=== PATIENT | female | born 1985 | race African-American/Black ===

== ENCOUNTER 2016-09-04 21:49 | Emergency (ER) | payer MEDICAID ==
[2014-03-10 05:26] VITALS: BMI 29.4
[~2016-09-04 21:49] MED LIST: IBUPROFEN800 MG PO; PERCOCET 10/3251 TA1 PO; PRENAVITE1 TAB PO
[2016-09-04 22:24] LABS: BASOPHILS 0.1 % (0-2); EOSINOPHILS 2.2 % (0-7); HEMATOCRIT 30.6 % (36.0-48.0); HEMOGLOBIN 10.7 g/dL (12-16); IMMATURE GRANULOCYTES 0.1 % (0-5); LYMPHOCYTES 29.6 % (15-50); MCH 32.7 pg (26.0-34.0); MCV 93.6 fL (80.0-100.0); MEAN PLATELET VOLUME 8.6 fL (7.4-10.4); MONOCYTES 5.6 % (2-11); NEUTROPHILS 62.4 % (40-80); RBC 3.27 10x6/uL (4.00-5.40); RDW 12.9 % (11.5-14.5); WBC 6.8 10x3/uL (4.8-10.8)
[2016-09-04 22:29] LABS: PLATELET COUNT 299 10x3/uL (130-400)
[2016-09-04 22:40] LABS: ALBUMIN 2.8 g/dL (3.4-5.0); ALKALINE PHOSPHATASE 60 U/L (46-116); ALT (SGPT) 25 U/L (10-68); BILIRUBIN - TOTAL 0.18 mg/dL (0.2-1.3); CALC OSMOLALITY 276 mosm/kg (275-300); CALCIUM 8.6 mg/dL (8.5-10.1); CARBON DIOXIDE 27.1 mmol/L (21.0-32.0); CHLORIDE - SERUM 102 mmol/L (98-107); CREATININE - SERUM 0.6 mg/dL (0.6-1.3); GLUCOSE 128 mg/dL (74-106); POTASSIUM - SERUM 3.5 mmol/L (3.5-5.1); PROTEIN - SERUM 6.6 g/dL (6.4-8.2); SODIUM 138 mmol/L (136-145); UREA NITROGEN 9 mg/dL (7-18); eGFR NON AFRICAN AMERICAN > 90 mL/min (90-120)
[2016-09-04 22:57] LABS: APPEARANCE CLEAR (CLEAR); COLOR AMBER (YELLOW); GLUCOSE NEGATIVE (NEGATIVE); KETONE NEGATIVE (NEGATIVE); LEUKOCYTE ESTERASE NEGATIVE (NEGATIVE); NITRITE NEGATIVE (NEGATIVE); PROTEIN NEGATIVE (NEGATIVE); SPECIFIC GRAVITY 1.015 (1.005-1.020); UROBILINOGEN NORMAL (NORMAL)
[2016-09-04 22:58] LABS: BILIRUBIN NEGATIVE (NEGATIVE)
[2016-09-04 23:04] LABS: UDS - AMPHET POSITIVE QUAL (NEGATIVE); UDS - BARB NEGATIVE QUAL (NEGATIVE); UDS - BENZO POSITIVE QUAL (NEGATIVE); UDS - COCAINE POSITIVE QUAL (NEGATIVE); UDS - METH NEGATIVE QUAL (NEGATIVE); UDS - OPIATE NEGATIVE QUAL (NEGATIVE); UDS - PCP NEGATIVE QUAL (NEGATIVE); UDS - THC NEGATIVE QUAL (NEGATIVE)
== END 2016-09-05 00:45 | disposition home or self-care (01) ==
LOC: D.ER 21:49
PROVIDERS: Family Medicine
DX: O26.892 Other specified pregnancy related conditions, second trimester (principal); R22.43 Localized swelling, mass and lump, lower limb, bilateral; M54.16 Radiculopathy, lumbar region; F17.200 Nicotine dependence, unspecified, uncomplicated

== ENCOUNTER → 2016-10-12 15:00 | Outpatient (CLI) | payer MEDICAID ==
[2014-03-10 05:26] VITALS: BMI 29.4
== END | disposition home or self-care (01) ==
LOC: D.LDO 15:00
DX: O26.893 Other specified pregnancy related conditions, third trimester (principal); Z3A.33 33 weeks gestation of pregnancy

== ENCOUNTER 2016-10-23 12:30 | Inpatient (IN) | payer MEDICAID ==
[~2016-10-23] VITALS: Ht 167.6 cm; Wt 93.9 kg
[2016-10-23 13:25] LABS: UDS - AMPHET NEGATIVE QUAL (NEGATIVE); UDS - BARB NEGATIVE QUAL (NEGATIVE); UDS - BENZO NEGATIVE QUAL (NEGATIVE); UDS - COCAINE NEGATIVE QUAL (NEGATIVE); UDS - METH NEGATIVE QUAL (NEGATIVE); UDS - OPIATE NEGATIVE QUAL (NEGATIVE); UDS - PCP NEGATIVE QUAL (NEGATIVE); UDS - THC NEGATIVE QUAL (NEGATIVE)
[2016-10-23 13:33] LABS: COLOR DK YELLOW (YELLOW)
[2016-10-23 13:34] LABS: APPEARANCE CLOUDY (CLEAR); BILIRUBIN NEGATIVE (NEGATIVE); GLUCOSE NEGATIVE (NEGATIVE); KETONE NEGATIVE (NEGATIVE); LEUKOCYTE ESTERASE 2+ (NEGATIVE); NITRITE NEGATIVE (NEGATIVE); PROTEIN TRACE mg/dL (NEGATIVE); UROBILINOGEN NORMAL (NORMAL)
[2016-10-23 13:37] LABS: BACTERIA MODERATE /hpf (NONE SEEN); MUCUS <1+ /lpf (NONE SEEN); RED CELLS - URINE 0-5 /hpf (0-5); WHITE CELLS - URINE >50 /hpf (0-5)
[2016-10-23 16:48] LABS: HEMATOCRIT 33.6 % (36.0-48.0); HEMOGLOBIN 11.5 g/dL (12-16); MCH 33.1 pg (26.0-34.0); MCHC 34.2 g/dL (31.0-37.0); MCV 96.8 fL (80.0-100.0); MEAN PLATELET VOLUME 9.1 fL (7.4-10.4); RBC 3.47 10x6/uL (4.00-5.40)
[2016-10-23] MEDS ORDERED: PHENERGAN25 M1 (18:04)
[2016-10-23] MEDS ORDERED: ZOFRAN4 MG (18:05)
[2016-10-23] MEDS ORDERED: ACETAMINOPHEN325 MG (18:06)
[2016-10-23 18:37] VITALS: BP 113/59; Ht 167.6 cm; Wt 93.9 kg
[2016-10-25 07:25] LABS: RAPID PLASMA REAGIN Non Reactive (Non Reactive)
== END 2016-10-24 08:30 | disposition home or self-care (01) | DRG 782 ==
LOC: D.LDO 12:30 → D.LD 17:27
PROVIDERS: ADMIT Obstetrics & Gynecology
DX: O99.333 Smoking (tobacco) complicating pregnancy, third trimester (principal); Z3A.00 Weeks of gestation of pregnancy not specified; O34.219 Maternal care for unspecified type scar from previous cesarean delivery

== ENCOUNTER → 2016-11-11 12:47 | Outpatient (CLI) | payer MEDICAID ==
[2016-10-23 18:37] VITALS: BMI 33.4
[~2016-11-11 12:47] MED LIST changes: +ACETAMINOPHEN325 MG; +PHENERGAN25 M1; +ZOFRAN4 MG
[2016-11-11 14:00] LABS: UDS - AMPHET NEGATIVE QUAL (NEGATIVE); UDS - BARB NEGATIVE QUAL (NEGATIVE); UDS - BENZO POSITIVE QUAL (NEGATIVE); UDS - COCAINE NEGATIVE QUAL (NEGATIVE); UDS - METH NEGATIVE QUAL (NEGATIVE); UDS - OPIATE NEGATIVE QUAL (NEGATIVE); UDS - PCP NEGATIVE QUAL (NEGATIVE); UDS - THC NEGATIVE QUAL (NEGATIVE)
[2016-11-11 14:15] LABS: APPEARANCE SLT CLOUDY (CLEAR); BILIRUBIN NEGATIVE (NEGATIVE); COLOR DK YELLOW (YELLOW); GLUCOSE NEGATIVE (NEGATIVE); KETONE NEGATIVE (NEGATIVE); LEUKOCYTE ESTERASE TRACE (NEGATIVE); NITRITE NEGATIVE (NEGATIVE); PROTEIN NEGATIVE (NEGATIVE)
[2016-11-11 14:16] LABS: BACTERIA FEW /hpf (NONE SEEN); EPITHELIAL CELLS 0-5 /hpf (0-5); MUCUS <1+ /lpf (NONE SEEN); RED CELLS - URINE RARE /hpf (0-5); WHITE CELLS - URINE 0-5 /hpf (0-5)
== END | disposition home or self-care (01) ==
LOC: D.LDO 12:47
PROVIDERS: Obstetrics & Gynecology
DX: Z34.83 Encounter for supervision of other normal pregnancy, third trimester (principal); Z3A.37 37 weeks gestation of pregnancy

== ENCOUNTER → 2016-11-17 17:27 | Outpatient (CLI) | payer MEDICAID ==
[2016-10-23 18:37] VITALS: BMI 33.4
[2016-11-17 18:56] LABS: APPEARANCE CLEAR (CLEAR); BILIRUBIN NEGATIVE (NEGATIVE); COLOR YELLOW (YELLOW); GLUCOSE NEGATIVE (NEGATIVE); KETONE NEGATIVE (NEGATIVE); LEUKOCYTE ESTERASE NEGATIVE (NEGATIVE); NITRITE NEGATIVE (NEGATIVE); PROTEIN NEGATIVE (NEGATIVE); SPECIFIC GRAVITY 1.015 (1.005-1.020); UROBILINOGEN NORMAL (NORMAL)
== END | disposition home or self-care (01) ==
LOC: D.LDO 17:27
PROVIDERS: Obstetrics & Gynecology
DX: O36.8130 Decreased fetal movements, third trimester, not applicable or unspecified (principal); M54.5 Low back pain; R51 Headache; Z3A.38 38 weeks gestation of pregnancy

== ENCOUNTER 2016-11-22 10:03 | Inpatient (IN) | payer MEDICAID ==
[~2016-11-22] VITALS: Ht 170.2 cm; Wt 95.3 kg
[2016-11-22] VITALS (7 sets, daily range): BP systolic 90–132; BP diastolic 50–66; Ht 170.2 cm; Wt 95.3 kg
[2016-11-22 11:46] LABS: HEMATOCRIT 33.7 % (36.0-48.0); HEMOGLOBIN 11.9 g/dL (12-16); MCH 33.5 pg (26.0-34.0); MCHC 35.3 g/dL (31.0-37.0); MCV 94.9 fL (80.0-100.0); MEAN PLATELET VOLUME 9.3 fL (7.4-10.4); RBC 3.55 10x6/uL (4.00-5.40); RDW 13.3 % (11.5-14.5); WBC 7.6 10x3/uL (4.8-10.8)
[2016-11-22 12:29] LABS: APPEARANCE HAZY (CLEAR); COLOR YELLOW (YELLOW); SPECIFIC GRAVITY 1.015 (1.005-1.020)
[2016-11-22 12:30] LABS: BACTERIA FEW /hpf (NONE SEEN); BILIRUBIN NEGATIVE (NEGATIVE); GLUCOSE NEGATIVE (NEGATIVE); KETONE NEGATIVE (NEGATIVE); LEUKOCYTE ESTERASE TRACE (NEGATIVE); MUCUS <1+ /lpf (NONE SEEN); NITRITE NEGATIVE (NEGATIVE); PROTEIN NEGATIVE (NEGATIVE); RED CELLS - URINE OCC /hpf (0-5); UROBILINOGEN NORMAL (NORMAL); WHITE CELLS - URINE 0-5 /hpf (0-5)
[2016-11-22 12:35] LABS: UDS - AMPHET NEGATIVE QUAL (NEGATIVE); UDS - BARB POSITIVE QUAL (NEGATIVE); UDS - BENZO POSITIVE QUAL (NEGATIVE); UDS - COCAINE NEGATIVE QUAL (NEGATIVE); UDS - METH NEGATIVE QUAL (NEGATIVE); UDS - OPIATE NEGATIVE QUAL (NEGATIVE); UDS - PCP NEGATIVE QUAL (NEGATIVE); UDS - THC NEGATIVE QUAL (NEGATIVE)
--- NOTE | 2016-11-22 14:53 | NUR ---
BABY BORN AT 1429
--- NOTE | 2016-11-22 15:32 | NUR ---
FUNDUS MIDLINE, 1 FINGER BELOW UMBILLICUS. FIRM. MINIMAL LOCHIA
--- NOTE | 2016-11-22 16:45 | NUR ---
RECEIVED PT BY BED FROM , POST SECTION BY DR. CUELLAR. SEE SHIFT ASSESSMENT. PT PROVIDED WITH I/S, INSTRUCTIONS GIVEN. PT DEMONSTRATES X 3 WELL. FUNDUS FIRM, U/U, SMALL RUBRA LOCHIA, NO CLOTS EXPELLED. PERICARE GIVEN WITH FOAM CLEANSER, PERIPAD CHANGED. ABDOMEN PALPATED SOFT. PT TILTED TO RIGHT WITH PILLOW UNDER NECK AND BACK FOR COMFORT AND SUPPORT. PT DEEP BREATHS AND COUGHS X 2. PT DENIES NAUSEA AND SOB. REQUEST SOMETHING TO DRINK. TEA SERVED. SIDE RAILS UP X 2. CL WITHIN REACH. PHONE WITH IN REACH. FAMILY AT BEDSIDE.
--- NOTE | 2016-11-22 17:00 | NUR ---
FUNDUS FIRM, U/U, SMALL RUBRA LOCHIA, NO CLOTS. PT CONTINUES TO DENY NEEDS AT THIS TIME.
--- NOTE | 2016-11-22 17:15 | NUR ---
FUNDUS FIRM, U/U, SMALL RUBRA LOCHIA, NO CLOTS.
--- NOTE | 2016-11-22 17:45 | NUR ---
FUNDUS FIRM, U/U, SMALL RUBRA LOCHIA, NO CLOTS. CHANGED PERIPAD. PT ABLE TO MOVE BOTH LEGS AND FEET WITH SLIGHT WEAKNESS NOTED. CHUX CHANGED. SR UP X 2, CL/PHONE WITHIN REACH. PT DENIES OTHER NEEDS AT THIS TIME.
--- NOTE | 2016-11-22 18:45 | NUR ---
FUNDUS FIRM, SMALL RUBRA LOCHIA, U/U. PAIN RATED 8/10 ON INSICION. HR CURRENTLY 96, 02 SATURATION AT 100 RA. PT DENIES OTHER NEEDS AT THIS TIME.
--- NOTE | 2016-11-22 18:53 | NUR ---
ABDOMEN SOFT. DRESSING INTACT AND CLEAN.
[2016-11-22 20:17] LABS: BASOPHILS 0.1 % (0-2); EOSINOPHILS 0.5 % (0-7); HEMATOCRIT 30.4 % (36.0-48.0); HEMOGLOBIN 10.7 g/dL (12-16); IMMATURE GRANULOCYTES 0.2 % (0-5); LYMPHOCYTES 14.3 % (15-50); MCH 33.8 pg (26.0-34.0); MCHC 35.2 g/dL (31.0-37.0); MCV 95.9 fL (80.0-100.0); MEAN PLATELET VOLUME 8.8 fL (7.4-10.4); MONOCYTES 2.6 % (2-11); NEUTROPHILS 82.3 % (40-80); RBC 3.17 10x6/uL (4.00-5.40); RDW 13.4 % (11.5-14.5)
[2016-11-22 20:33] LABS: WBC 13.2 10x3/uL (4.8-10.8)
[2016-11-22 20:34] LABS: PLATELET COUNT 272 10x3/uL (130-400)
[2016-11-23] VITALS: BP 105/64
--- NOTE | 2016-11-23 02:00 | NUR ---
PATIENT RESTING IN BED WITH EYES CLOSED AND NO VISIBLE SIGNS OF DISTRESS. BED IN LOWEST POSITION AND CALL LIGHT WITHIN REACH.
[2016-11-23 04:00] VITALS: BP 109/63
[2016-11-23 05:35] LABS: BASOPHILS 0.1 % (0-2); HEMATOCRIT 30.5 % (36.0-48.0); HEMOGLOBIN 10.6 g/dL (12-16); IMMATURE GRANULOCYTES 0.3 % (0-5); LYMPHOCYTES 17.8 % (15-50); MCH 33.3 pg (26.0-34.0); MCHC 34.8 g/dL (31.0-37.0); MCV 95.9 fL (80.0-100.0); MEAN PLATELET VOLUME 9.2 fL (7.4-10.4); MONOCYTES 7.8 % (2-11); PLATELET COUNT 300 10x3/uL (130-400); RBC 3.18 10x6/uL (4.00-5.40); RDW 13.7 % (11.5-14.5)
[2016-11-23 07:26] LABS: RAPID PLASMA REAGIN Non Reactive (Non Reactive)
--- NOTE | 2016-11-23 07:30 | NUR ---
PT AWAKE AND ORIENTED. RESTING ON BED. RATES PAIN 8/10. FUNDUS FIRM, U/1, SMALL RUBRA LOCHIA. ABLE TO MOVE BOTH LEGS. REPOSTIONED TO RIGHT SIDE WITH EXTRA PILLOW PROVIDE UNDER HER BACK. ABDOMEN SOFT. DRESSING C,D,I. BONE IN PLACE. CLEAR YELLOW URINE NOTED. DENIES OTHER NEEDS.
--- NOTE | 2016-11-23 08:10 | NUR ---
SPOKE WITH DR. MORALES. DRESSING CAN BE REMOVED AND ABDOMINAL BINDER NEEDS TO BE PROVIDED. PT CAN SHOWER. ORDERED A NICOTINE PATCH.
--- NOTE | 2016-11-23 08:22 | NUR ---
CM MET WITH PATIENT REGARDING D/C NEEDS AND PLANS. PATIENT STATED SHE LIVES ALONE AND HER SISTER WILL DRIVE HER HOME AND WILLL BE STAYING WITH HER FOR A WHILE. PATIENT STATED THERE ARE ABOUT 20 STEPS W/RAILS TO ENTER HOME AND NO STAIRS INSIDE. PATIENT DOES NOT HAVE A PCP AND USES [facility] [address] FOR HER PHARMACY. PATIENT STATED SHE IS INDEPENDENT WITH HER CARE AND HAS NO DME AT HOME. PATIENT DID NOT WANT HOME HEALTH AT DISCHARGE. CM WILL CONTINUE TO FOLLOW PATIENT WITH D/C NEEDS AND PLANS. PCP NONE [facility] [phone] BORIS (FRIEND) [phone]
[2016-11-23 08:53] VITALS: BP 95/60
--- NOTE | 2016-11-23 08:53 | NUR ---
PT RESTING COMFORTABLY AT THIS TIME. NICOTINE PATCH ADMINISTER.
--- NOTE | 2016-11-23 11:57 | NUR ---
PT RATED PAIN 9/10. TORADOL GIVEN PER ORDERS. FUNDUS FIRM, MODERATE RUBRA LOCHIA. U/1. CHUX CHANGED, PERIPAD CHANGED. ABDOMEN SOFT. DRESSING INTACT, CLEAN AND DRY. PT DENIES OTHER NEEDS AT THIS TIME.
--- NOTE | 2016-11-23 12:30 | NUR ---
SPOKE WITH DR. MORALES. ORDERED FERMENTING CELLARS SUPERVISOR AND BONE TO BE DISCONTINUED. ORDERED MOTRIN 600MG PO Q 6HRS, NORCO 5 @ 6HRS.
--- NOTE | 2016-11-23 13:34 | NUR ---
BONE DC'D WITH CATHETER INTACT. 300ML OF YELLOW URINE. PT TOLERATED WELL. FUNDIS FIRM, U/1, SMALL RUBRA LOCHIA, ABDOMEN SOFT. ABULATED TO BATHROOM. SHOWERED AND ABDOMINAL DRESSING REMOVED. SCANT AMOUT OF BLOOD NOTED ON INSIDE OF DRESSING. AMBULATED BACK TO BED. DILAUDID STUDENT ACTIVITIES DIRECTOR AND PITOCIN DC'D. SALINE LOCKED RIGHT FOREARM IV. PT REPORTED PAIN 9/10. NORCO GIVEN PER ORDERS. CLEAN LINENS PROVIDED. PT RESTING QUIETLY IN BED. NO OTHER NEEDS AT THIS TIME.
--- NOTE | 2016-11-23 16:26 | NUR ---
PT ASKING FOR PAIN MEDICINE. GAVE TORADOL AT 1133 AND GAVE NORCO AT 1330. PT DID NOT WANT MOTRIN. SHE SAID THAT IT WOULD NOT HELP. PAIN IS 9/10. ICE PACK PROVIDED. WILL GIVE TORADOL IN ABOUT AN HOUR. PT ASKING IF SHE CAN GO HOME. WILL CALL DOCTOR MORALES TO FIND OUT.
[2016-11-23 16:35] VITALS: BP 110/70
--- NOTE | 2016-11-23 16:44 | NUR ---
PT AMBULATED TO BATHROOM. HAS VOIDED TWICE SINCE BONE REMOVAL. FUNDUS FIRM, U/1, SCANT RUBRA LOCHIA, NO CLOTS. ABDOMEN SOFT. PT STATES NO OTHER NEEDS AT THIS TIME. CONFIRMED DISCHARGE WITH DR. MORALES.
[2016-11-23] MEDS ORDERED: IBUPROFEN600 MG PO (16:47)
--- NOTE | 2016-11-23 18:40 | NUR ---
PT DISCHARGED. DISCHARGE INSTRUCTIONS AND PAPERS GIVEN. IV DC'D WITH CATHETER INTACT. WHEELED PT WITH BELONGING TO FRONT ENTRANCE. ASSISTED IN VEHICLE.
== END 2016-11-23 18:40 | disposition home or self-care (01) | DRG 765 ==
LOC: D.MS 10:03 → D.LD 10:03 → D.MS 10:03 → D.SDCHOLD 12:00 → D.MS 16:14
PROVIDERS: ADMIT Obstetrics & Gynecology
PROC: 10D00Z1 Extraction of Products of Conception, Low, Open Approach (ICD-10-PCS; principal; 2016-11-22 12:00)
DX: O34.211 Maternal care for low transverse scar from previous cesarean delivery (principal); O98.32 Other infections with a predominantly sexual mode of transmission complicating childbirth; O99.824 Streptococcus B carrier state complicating childbirth; O99.334 Smoking (tobacco) complicating childbirth; O99.02 Anemia complicating childbirth; D64.9 Anemia, unspecified; A59.9 Trichomoniasis, unspecified; K02.9 Dental caries, unspecified; Z3A.39 39 weeks gestation of pregnancy; Z37.0 Single live birth

== ENCOUNTER 2016-12-09 12:18 | Emergency (ER) | payer MEDICAID ==
[2016-11-22 10:13] VITALS: BMI 32.9
[~2016-12-09 12:18] MED LIST changes: +IBUPROFEN600 MG PO
== END 2016-12-09 13:40 | disposition home or self-care (01) ==
LOC: D.ER 12:18
DX: S31.119D Laceration without foreign body of abdominal wall, unspecified quadrant without penetration into peritoneal cavity, subsequent encounter (principal); X58.XXXD Exposure to other specified factors, subsequent encounter; Y92.89 Other specified places as the place of occurrence of the external cause

== ENCOUNTER 2016-12-12 12:37 | Emergency (ER) | payer MEDICAID ==
[2016-11-22 10:13] VITALS: BMI 32.9
== END 2016-12-12 15:06 | disposition home or self-care (01) ==
LOC: D.ER 12:37
DX: S31.119D Laceration without foreign body of abdominal wall, unspecified quadrant without penetration into peritoneal cavity, subsequent encounter (principal); X58.XXXD Exposure to other specified factors, subsequent encounter; Y92.89 Other specified places as the place of occurrence of the external cause; Z48.02 Encounter for removal of sutures

== ENCOUNTER 2019-01-13 16:14 | Emergency (ER) | payer MEDICARE ==
[~2019-01-13] VITALS: Ht 170.2 cm; Wt 79.5 kg
[2019-01-13 16:21] VITALS: BP 132/86; Ht 170.2 cm; Wt 79.5 kg
[2019-01-13] MEDS ORDERED: BUPRENORPHIN-N1 EACH SL (16:25)
[2019-01-13 16:40] LABS: BASOPHILS 0.4 % (0-2); EOSINOPHILS 1.7 % (0-7); HEMATOCRIT 37.2 % (36.0-48.0); HEMOGLOBIN 12.6 g/dL (12-16); IMMATURE GRANULOCYTES 0.1 % (0-5); MCH 32.6 pg (26.0-34.0); MCHC 33.9 g/dL (31.0-37.0); MCV 96.1 fL (80.0-100.0); MEAN PLATELET VOLUME 8.7 fL (7.4-10.4); MONOCYTES 8.4 % (2-11); NEUTROPHILS 48.4 % (40-80); RBC 3.87 10x6/uL (4.00-5.40); RDW 12.7 % (11.5-14.5); WBC 8.5 10x3/uL (4.8-10.8)
[2019-01-13 16:43] LABS: APPEARANCE CLEAR (CLEAR); BILIRUBIN NEGATIVE (NEGATIVE); COLOR YELLOW (YELLOW); GLUCOSE NEGATIVE (NEGATIVE); KETONE NEGATIVE (NEGATIVE); NITRITE NEGATIVE (NEGATIVE); PLATELET COUNT 389 10x3/uL (130-400); PROTEIN NEGATIVE (NEGATIVE); SPECIFIC GRAVITY 1.025 (1.005-1.020); UROBILINOGEN NORMAL (NORMAL)
[2019-01-13 16:45] LABS: HCG URINE NEGATIVE (NEGATIVE)
[2019-01-13 16:57] LABS: ALBUMIN 3.9 g/dL (3.4-5.0); ALKALINE PHOSPHATASE 57 U/L (46-116); ALT (SGPT) 15 U/L (10-68); BILIRUBIN - TOTAL 0.37 mg/dL (0.2-1.3); CALC OSMOLALITY 277 mosm/kg (275-300); CALCIUM 8.4 mg/dL (8.5-10.1); CARBON DIOXIDE 30.9 mmol/L (21.0-32.0); CHLORIDE - SERUM 103 mmol/L (98-107); CREATININE - SERUM 0.8 mg/dL (0.6-1.3); GLUCOSE 94 mg/dL (74-106); POTASSIUM - SERUM 3.4 mmol/L (3.5-5.1); PROTEIN - SERUM 7.5 g/dL (6.4-8.2); SODIUM 139 mmol/L (136-145); UREA NITROGEN 13 mg/dL (7-18); eGFR NON AFRICAN AMERICAN 89 mL/min (90-120)
[2019-01-13] MEDS ORDERED: ZOFRAN4 MG PO (17:36)
== END 2019-01-13 18:19 | disposition home or self-care (01) ==
LOC: D.ER 16:14
PROVIDERS: Emergency Medicine
DX: K52.9 Noninfective gastroenteritis and colitis, unspecified (principal); F17.210 Nicotine dependence, cigarettes, uncomplicated